=== PATIENT | female | born 1995 | race African-American/Black ===

== ENCOUNTER 2019-04-16 21:09 | Emergency (ER) | payer MEDICAID ==
[2019-04-16] MEDS ORDERED: Ondansetron 4 MG/2 ML SDV IVPUSH ONE (21:22)
--- NOTE | 2019-04-16 21:25 | EDM.PDOC ---
ED HPI GENERAL MEDICAL PROBLEM <Gabi Mauricio - Last Filed: 04/16/19 23:32> - General Source of Information: Reports: Patient History Limitations: Reports: No Limitations - History of Present Illness Duration: Week(s): Location: Reports: Abdomen abdomen Pain Score (Numeric/FACES): 10 <Josseline Wallace - Last Filed: 04/18/19 09:59> - General Chief Complaint: Gastrointestinal Problem Stated Complaint: NAUSEA VOMITTING Time Seen by Provider: 04/16/19 21:16 - History of Present Illness INITIAL COMMENTS - FREE TEXT/NARRATIVE: This is Dr. Mauricio dictating an addendum note as I have assumed care of this case at 10 PM and and the supervising physician. I reviewed all the blood work including a serum quantitative hCG and the patient underwent a pelvic ultrasound. The patient does have an intrauterine sac without a pole or yolk sac and is concerning for a blighted ovum in light of the Quant of 77,000 and the lack of appropriate markers. The patient is not having any vaginal bleeding or discharge and her lower abdominal pain can be explained by a corpus luteal cyst in the right ovary. All these results were discussed with the patient and family at bedside as well as with Dr. Merchant at 2325. The patient does have a follow-up appointment with [facility] on Wednesday and I have encouraged her to keep that as she can have a repeat hormone level and ultrasound at that time. I have told her that she needs to be on strict pelvic rest until that time and reasons to return to the ED. Dr. Merchant has her name and will inform the office and I will have the patient call there in the morning just to confirm her follow-up on Wednesday. I will also give her Zofran from [employer] for home use Please add to impression above: Intrauterine rule out blighted ovum/ threatened , vomiting in (Gabi Mauricio Wayne) HISTORY AND PHYSICAL: History of present illness: Patient is a 23-year-old female who presents to the emergency room with complaints of a 2 week of nausea, vomiting, and midsternal chest pain and generalized abdominal pain. She states that she took a home test which was positive, believes she is approximately 7 weeks . Her LMP 11/2018. She does have an appointment with an [facility] on Wednesday for her initial OB visit. She states she came to the emergency room by ambulance today as she felt she could not wait any longer due to her symptoms. Patient denies any fever, chills, headache, change in vision, syncope or near syncope. Denies any back pain, shortness of breath or cough. Denies any diarrhea, constipation or dysuria. Has not noted any blood in urine or stool. She denies any vaginal bleeding or discharge. Patient has been eating and drinking appropriately. 5, para 2. Review of systems: As per history of present illness and below otherwise all systems reviewed and negative. Past medical history: As per history of present illness and as reviewed below otherwise noncontributory. Surgical history: As per history of present illness and as reviewed below otherwise noncontributory. Social history: See social history for further information Family history: As per history of present illness and as reviewed below otherwise noncontributory. Physical exam: General: Well-developed and well-nourished 23-year-old -German female. Alert and oriented. Nontoxic appearing and in no acute distress. HEENT: Atraumatic, normocephalic, pupils equal and reactive bilaterally, negative for conjunctival pallor or scleral icterus, mucous membranes moist, trachea midline. No drooling or trismus noted. No meningeal signs. No hot potato voice noted. Lungs: Clear to auscultation, breath sounds equal bilaterally, chest nontender. Heart: S1S2, regular rate and rhythm without overt murmur Abdomen: Soft, nondistended, generalized tenderness throughout, no rebound tenderness. Negative for masses or hepatosplenomegaly. Negative for costovertebral tenderness. Pelvis: Stable nontender. Skin: Intact, warm, dry. No lesions or rashes noted. Extremities: Atraumatic, moves all extremities per self without difficulty or deficits, negative for cords or calf pain. Neurovascular unremarkable. Neuro: Awake, alert, oriented. Cranial nerves II through XII unremarkable. Cerebellum unremarkable. Motor and sensory unremarkable throughout. Exam nonfocal. Notes: Lab work is pending. Dr Mauricio was informed of this patient and will follow labs/ultrasound and disposition patient appropriately. Diagnostics: CBC, CMP, UA, HCGU, Quant HCG, Transvaginal US Therapeutics: IV fluids, Zofran Impression: Abdominal Pain Definitive disposition and diagnosis as appropriate pending reevaluation and review of above. (Josseline Wallace) - Related Data Allergies Allergy/AdvReac Type Severity Reaction Status Date / Time No Known Allergies Allergy Verified 04/16/19 21:15 Home Meds: Home Meds Pnv No.95/Ferrous Fum/Folic AC [ Caplet] 1 tab PO DAILY 04/16/19 [ History] ED ROS GENERAL - Review of Systems Review Of Systems: Comprehensive ROS is negative, except as noted in HPI. <Gabi Mauricio - Last Filed: 04/16/19 23:32> - Review of Systems Review Of Systems: Comprehensive ROS is negative, except as noted in HPI. <Josseline Wallace - Last Filed: 04/18/19 09:59> ED EXAM - Physical Exam Exam: See Below (See dictation) <Josseline Wallace - Last Filed: 04/18/19 09:59> - Vital Signs Last Recorded V/S: Last Vital Signs Temp 96.8 F 04/16/19 21:13 Pulse 69 04/16/19 23:48 Resp 16 04/16/19 23:48 BP 107/61 04/16/19 23:48 Pulse Ox 100 04/16/19 23:48 - Orders/Labs/Meds Labs: Laboratory Tests 04/16/19 04/16/19 04/16/19 Range/Units 21:35 21:35 22:05 WBC 6.61 (4.0-11.0) K/uL RBC 4.66 (4.30-5.90) M/uL Hgb 12.9 (12.0-16.0) g/dL Hct 39.0 (36.0-46.0) % MCV 83.7 (80.0-98.0) fL MCH 27.7 (27.0-32.0) pg MCHC 33.1 (31.0-37.0) g/dL RDW Std Deviation 39.1 (28.0-62.0) fl RDW Coeff of Tamar 13 (11.0-15.0) % Plt Count 347 (150-400) K/uL MPV 10.00 (7.40-12.00) fL Neut % (Auto) 58.7 (48.0-80.0) % Lymph % (Auto) 30.1 (16.0-40.0) % Hand % (Auto) 10.6 (0.0-15.0) % Eos % (Auto) 0.3 (0.0-7.0) % Baso % (Auto) 0.3 (0.0-1.5) % Neut # (Auto) 3.9 (1.4-5.7) K/uL Lymph # (Auto) 2.0 (0.6-2.4) K/uL Hand # (Auto) 0.7 (0.0-0.8) K/uL Eos # (Auto) 0.0 (0.0-0.7) K/uL Baso # (Auto) 0.0 (0.0-0.1) K/uL Nucleated RBC % 0.0 /100WBC Nucleated RBCs # 0 K/uL HCG, Qual (NEG) HCG, Quant 77740.0 mIU/mL Urine Color YELLOW Urine Appearance CLOUDY Urine pH 8.5 H (5.0-8.0) Ur Specific [place] 1.015 (1.001-1.035) Urine Protein 30 H (NEGATIVE) mg/dL Urine Glucose (UA) NEGATIVE (NEGATIVE) mg/dL Urine Ketones 40 H (NEGATIVE) mg/dL Urine Occult Blood NEGATIVE (NEGATIVE) Urine Nitrite NEGATIVE (NEGATIVE) Urine Bilirubin NEGATIVE (NEGATIVE) Urine Urobilinogen 1.0 (<2.0) EU/dL Ur Leukocyte Esterase NEGATIVE (NEGATIVE) Urine RBC 0-1 (0-2/HPF) Urine WBC 2-5 (0-5/HPF) Ur Epithelial Cells FEW (NONE-FEW) Amorphous Sediment HEAVY (NEGATIVE) Urine Bacteria FEW (NEGATIVE) Blood Type 04/16/19 04/16/19 Range/Units 22:05 22:05 WBC (4.0-11.0) K/uL RBC (4.30-5.90) M/uL Hgb (12.0-16.0) g/dL Hct (36.0-46.0) % MCV (80.0-98.0) fL MCH (27.0-32.0) pg MCHC (31.0-37.0) g/dL RDW Std Deviation (28.0-62.0) fl RDW Coeff of Tamar (11.0-15.0) % Plt Count (150-400) K/uL MPV (7.40-12.00) fL Neut % (Auto) (48.0-80.0) % Lymph % (Auto) (16.0-40.0) % Hand % (Auto) (0.0-15.0) % Eos % (Auto) (0.0-7.0) % Baso % (Auto) (0.0-1.5) % Neut # (Auto) (1.4-5.7) K/uL Lymph # (Auto) (0.6-2.4) K/uL Hand # (Auto) (0.0-0.8) K/uL Eos # (Auto) (0.0-0.7) K/uL Baso # (Auto) (0.0-0.1) K/uL Nucleated RBC % /100WBC Nucleated RBCs # K/uL HCG, Qual POSITIVE H (NEG) HCG, Quant mIU/mL Urine Color Urine Appearance Urine pH (5.0-8.0) Ur Specific [place] (1.001-1.035) Urine Protein (NEGATIVE) mg/dL Urine Glucose (UA) (NEGATIVE) mg/dL Urine Ketones (NEGATIVE) mg/dL Urine Occult Blood (NEGATIVE) Urine Nitrite (NEGATIVE) Urine Bilirubin (NEGATIVE) Urine Urobilinogen (<2.0) EU/dL Ur Leukocyte Esterase (NEGATIVE) Urine RBC (0-2/HPF) Urine WBC (0-5/HPF) Ur Epithelial Cells (NONE-FEW) Amorphous Sediment (NEGATIVE) Urine Bacteria (NEGATIVE) Blood Type B POSITIVE Meds: Medications Discontinued Medications Generic Name Dose Route Start Last Admin Trade Name Genie PRN Reason Stop Dose Admin Sodium Chloride 1,000 mls @ 999 mls/hr 04/16/19 21:30 04/16/19 21:39 Normal Saline IV 999 mls/hr ASDIRECTED SHAQUILLE Administration Ondansetron HCl 4 mg 04/16/19 21:22 04/16/19 21:40 Zofran IVPUSH 04/16/19 21:23 4 mg ONETIME ONE Administration Departure - Departure Time of Disposition: 23:34 Condition: Good <Gabi Mauricio A - Last Filed: 04/16/19 23:32> <Josseline Wallace - Last Filed: 04/18/19 09:59> - Departure Disposition: Home, Self-Care 01 Clinical Impression: Abdominal pain, Threatened , Vomiting - Discharge Information Instructions: First Trimester of , [id number], Threatened Miscarriage, [id number] Referrals: PCP,Not In Area [Primary Care Provider] - Forms: ED Department Discharge Additional Instructions: The following information is given to patients seen in the emergency department who are being discharged to home. This information is to outline your options for follow-up care. We provide all patients seen in our emergency department with a follow-up referral. The need for follow-up, as well as the timing and circumstances, are variable depending upon the specifics of your emergency department visit. If you don't have a primary care physician on staff, we will provide you with a referral. We always advise you to contact your personal physician following an emergency department visit to inform them of the circumstance of the visit and for follow-up with them and/or the need for any referrals to a consulting specialist. The emergency department will also refer you to a specialist when appropriate. This referral assures that you have the opportunity for followup care with a specialist. All of these measure are taken in an effort to provide you with optimal care, which includes your followup. Under all circumstances we always encourage you to contact your private physician who remains a resource for coordinating your care. When calling for followup care, please make the office aware that this follow-up is from your recent emergency room visit. If for any reason you are refused follow-up, please contact the [facility] emergency department at and ask to speak to the emergency department charge nurse. [facility]'s [address] [id number] Please keep your appointment on Wednesday at the clinic but also call in the morning and check in to allow them to know what is going on and see if they want to move your appointment sooner. Push hydration and strict pelvic rest with nothing in the vagina and to you're followed up in the clinic. Use Zofran as prescribed to you from [facility] as needed for nausea and vomiting. Return to ER as needed and as discussed
[2019-04-16] MEDS ORDERED: Sodium Chloride 0.9% 1,000 ML IV SCH (21:30)
--- NOTE | 2019-04-16 23:25 | US ---
INDICATION: Right lower quadrant pain 2 weeks, positive test TECHNIQUE: Ultrasound OB pelvis transvaginal. Real time mendoza scale imaging of the pelvis was performed. COMPARISON: None FINDINGS: Gestational sac: Sonographic imaging demonstrates a single intrauterine gestation with a normal appearance measuring 4.3 x 1 x 2.1 cm with an average diameter of 2.5 cm. No evidence of a perigestational hemorrhage is seen. The amount of fluid within the sac appears appropriate for gestational age. Fetus: No pole or yolk sac is identified. Placenta: The placenta has not yet developed. 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 The visualized myometrium appears normal. The right ovary has an echogenic, thick-walled structure with peripheral vascularity. An adjacent right simple ovarian cyst is noted. Left ovary is unremarkable in appearance. No significant ascites noted. IMPRESSION: 1. Single intrauterine gestational sac is seen along the right uterine horn with average sac diameter of 2.5 cm and no pole identified. Findings are suspicious for blighted ovum and follow-up ultrasound recommended. 2. 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 3. The right ovary has an echogenic, thick-walled structure with peripheral vascularity. This may represent a corpus luteum cyst but follow-up ultrasound is also helpful to exclude the less likely possibility of ectopic or heterotopic . Dictated by Nas Nava MD @ 04/16/2019 11:24:31 PM Dictated by: Nas Nava MD @ 04/16/2019 23:24:35 (Electronically Signed)
== END 2019-04-16 23:50 | disposition home or self-care (01) ==
LOC: MW.ED 21:09
DX: O20.0 Threatened abortion (principal); O21.9 Vomiting of pregnancy, unspecified; Z3A.01 Less than 8 weeks gestation of pregnancy
CPT/HCPCS: 76817; 81001; 84702; 84703; 85025; 86900; 86901; 93005; 96361; 96374; 99284; J2405; J7040; 99283; J7030

== ENCOUNTER 2019-05-03 10:41 | Emergency (ER) | payer MEDICAID ==
[2019-05-03] MEDS ORDERED: Sodium Chloride 0.9% 1,000 ML IV ONE ×2 (10:55→11:59)
[2019-05-03] MEDS ORDERED: Ondansetron 4 MG/2 ML SDV IVPUSH ONE (10:55)
--- NOTE | 2019-05-03 11:15 | EDM.PDOC ---
ED HPI GENERAL MEDICAL PROBLEM - General Chief Complaint: Gastrointestinal Problem Stated Complaint: DEHYDRATED Time Seen by Provider: 05/03/19 10:42 Source of Information: Reports: Patient History Limitations: Reports: No Limitations - History of Present Illness INITIAL COMMENTS - FREE TEXT/NARRATIVE: HISTORY AND PHYSICAL: History of present illness: Patient is a 23-year-old female presents to the ED today with concern of dehydration due to vomiting and early . Patient states she is approximately 7-8 weeks in gestation. Patient states over the last week she has felt more nauseous and has not been drinking as much fluids. Patient states she is vomited a few times on occasion. Patient denies any abdominal pain, cramping , or vaginal bleeding. Patient states she follows with Dr. Prince Barnes [facility]. Patient was seen in the ED on 04/16/19 with possible blighted ovum versus early . Patient states she had a follow- up ultrasound with Dr. Prince Barnes and cardiac activity was detected according to patient. Patient states she has had nausea during and has been given Zofran by Dr. Prince Barnes. Patient states she did take a dose of Zofran earlier this morning. Patient states she has not vomited since taking Zofran. Patient denies any other symptoms or concerns. Patient denies fever, chills, chest pain, shortness of breath, or cough. Denies headache, neck stiff ness, change in vision, syncope, or near syncope. Denies abdominal pain, diarrhea, constipation, or dysuria. Has not noted any blood in urine or stool. Patient has been eating and drinking appropriately. Review of systems: As per history of present illness and below otherwise all systems reviewed and negative. Past medical history: As per history of present illness and as reviewed below otherwise noncontributory. Surgical history: As per history of present illness and as reviewed below otherwise noncontributory. Social history: See social history for further information Family history: As per history of present illness and as reviewed below otherwise noncontributory. Physical exam: General: Patient is alert, oriented, and in no acute distress. Patient laying comfortably on exam table. HEENT: Atraumatic, normocephalic, pupils equal and reactive bilaterally, negative for conjunctival pallor or scleral icterus, mucous membranes dry, TMs normal bilaterally, throat clear, neck supple, nontender, trachea midline. No drooling or trismus noted. No meningeal signs. No hot potato voice noted. Lungs: Clear to auscultation, breath sounds equal bilaterally, chest nontender. Heart: S1S2, regular rate and rhythm without overt murmur Abdomen: Soft, nondistended, nontender. Negative for masses or hepatosplenomegaly. Negative for costovertebral tenderness. Pelvis: Stable nontender. Genitourinary: Deferred. Rectal: Deferred. Skin: Intact, warm, dry. No lesions or rashes noted. Extremities: Atraumatic, negative for cords or calf pain. Neurovascular unremarkable. Neuro: Awake, alert, oriented. Cranial nerves II through XII unremarkable. Cerebellum unremarkable. Motor and sensory unremarkable throughout. Exam nonfocal. Notes: Patient able to tolerate PO intake in the ED today. Discussed the importance for follow-up with her [facility] provider. Voices understanding and is agreeable to plan of care. Denies any further questions or concerns at this time. Diagnostics: CBC, CMP, UA, lipase Therapeutics: NS, Zofran Prescription: Keflex Impression: Nausea and vomiting in early Urinary tract infection Plan: 1. Please start and/or continue to take your vitamin with folic acid once daily. 2. Tylenol as needed for pain management. This is safe to use in . 3. Follow up with your [facility] womens health provider as discussed. Return to the ED as needed and as discussed. Definitive disposition and diagnosis as appropriate pending reevaluation and review of above. 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 (See Below) Other SHEET [employer]AYER History: Musculoskeletal History: Reports: None Neurological History: Reports: None Psychiatric History: Reports: None Endocrine/Metabolic History: Reports: None Hematologic History: Reports: None Immunologic History: Reports: None Oncologic (Cancer) History: Reports: None Dermatologic History: Reports: None - Past Surgical History Head Surgeries/Procedures: Reports: None HEENT Surgical History: Reports: None Cardiovascular Surgical History: Reports: None Respiratory Surgical History: Reports: None GI Surgical History: Reports: None Female Surgical History: Reports: None Endocrine Surgical History: Reports: None Neurological Surgical History: Reports: None Musculoskeletal Surgical History: Reports: None Oncologic Surgical History: Reports: None Dermatological Surgical History: Reports: None Social & Family History - Family History Family Medical History: Noncontributory - Tobacco Use Smoking Status *Q: Never Smoker Second Hand Smoke Exposure: No - Caffeine Use Caffeine Use: Reports: None - Recreational Drug Use Recreational Drug Use: No ED ROS GENERAL - Review of Systems Review Of Systems: Comprehensive ROS is negative, except as noted in HPI. ED EXAM, GENERAL - Physical Exam Exam: See Below (See dictation) Course - Vital Signs Last Recorded V/S: Last Vital Signs Temp 97.0 F 05/03/19 10:49 Pulse 127 H 05/03/19 10:49 Resp 18 05/03/19 10:49 BP 108/72 05/03/19 10:49 Pulse Ox 98 05/03/19 10:49 - Orders/Labs/Meds Orders: Active Orders 24 hr Category Date Time Status CULTURE URINE [RM] Stat Lab 05/03/19 12:00 Received Labs: Laboratory Tests 05/03/19 05/03/19 05/03/19 Range/Units 11:00 11:00 12:00 WBC 6.34 (4.0-11.0) K/uL RBC 4.43 (4.30-5.90) M/uL Hgb 12.2 (12.0-16.0) g/dL Hct 36.3 (36.0-46.0) % MCV 81.9 (80.0-98.0) fL MCH 27.5 (27.0-32.0) pg MCHC 33.6 (31.0-37.0) g/dL RDW Std Deviation 38.5 (28.0-62.0) fl RDW Coeff of Tamar 13 (11.0-15.0) % Plt Count 279 (150-400) K/uL MPV 10.60 (7.40-12.00) fL Neut % (Auto) 63.6 (48.0-80.0) % Lymph % (Auto) 29.2 (16.0-40.0) % Hudson % (Auto) 6.8 (0.0-15.0) % Eos % (Auto) 0.2 (0.0-7.0) % Baso % (Auto) 0.2 (0.0-1.5) % Neut # (Auto) 4.0 (1.4-5.7) K/uL Lymph # (Auto) 1.9 (0.6-2.4) K/uL Hudson # (Auto) 0.4 (0.0-0.8) K/uL Eos # (Auto) 0.0 (0.0-0.7) K/uL Baso # (Auto) 0.0 (0.0-0.1) K/uL Nucleated RBC % 0.0 /100WBC Nucleated RBCs # 0 K/uL Sodium 136 (136-145) mmol/L Potassium 3.0 L (3.5-5.1) mmol/L Chloride 101 (98-107) mmol/L Carbon Dioxide 24.6 (21.0-32.0) mmol/L BUN 10 (7.0-18.0) mg/dL Creatinine 0.7 (0.6-1.0) mg/dL Est Cr Clr Drug Dosing 121.55 mL/min Estimated GFR (MDRD) > 60.0 ml/min Glucose 124 H (74-106) mg/dL Calcium 9.1 (8.5-10.1) mg/dL Total Bilirubin 0.8 (0.2-1.0) mg/dL AST 13 L (15-37) IU/L ALT 14 (14-63) IU/L Alkaline Phosphatase 47 (46-116) U/L Total Protein 8.1 (6.4-8.2) g/dL Albumin 3.7 (3.4-5.0) g/dL Globulin 4.4 H (2.6-4.0) g/dL Albumin/Globulin Ratio 0.8 L (0.9-1.6) Lipase 80 (73-393) U/L Urine Color DARK YELLOW Urine Appearance SLT CLOUDY Urine pH 6.0 (5.0-8.0) Ur Specific Marvin >= 1.030 (1.001-1.035) Urine Protein 30 H (NEGATIVE) mg/dL Urine Glucose (UA) NEGATIVE (NEGATIVE) mg/dL Urine Ketones 15 H (NEGATIVE) mg/dL Urine Occult Blood NEGATIVE (NEGATIVE) Urine Nitrite POSITIVE H (NEGATIVE) Urine Bilirubin SMALL H (NEGATIVE) Urine Ictotest NEGATIVE Urine Urobilinogen 1.0 (<2.0) EU/dL Ur Leukocyte Esterase NEGATIVE (NEGATIVE) Urine RBC 0-3 (0-2/HPF) Urine WBC 0-3 (0-5/HPF) Ur Epithelial Cells FEW (NONE-FEW) Urine Bacteria 1+ H (NEGATIVE) Urine Mucus MODERATE (NONE-MOD) Meds: Medications Discontinued Medications Generic Name Dose Route Start Last Admin Trade Name Freq PRN Reason Stop Dose Admin Sodium Chloride 1,000 mls @ 999 mls/hr 05/03/19 10:55 05/03/19 11:06 Normal Saline IV 05/03/19 11:55 999 mls/hr BOLUS ONE Administration Sodium Chloride 1,000 mls @ 999 mls/hr 05/03/19 11:59 05/03/19 12:19 Normal Saline IV 05/03/19 12:59 999 mls/hr STAT ONE Administration Ondansetron HCl 4 mg 05/03/19 10:55 05/03/19 11:08 Zofran IVPUSH 05/03/19 10:56 4 mg ONETIME ONE Administration Departure - Departure Time of Disposition: 14:13 Disposition: Home, Self-Care 01 Clinical Impression: Nausea and vomiting in Urinary tract infection Qualifiers: Urinary tract infection type: acute cystitis Hematuria presence: without hematuria Qualified Code(s): N30.00 - Acute cystitis without hematuria - Discharge Information Referrals: PCP,None [Primary Care Provider] - Forms: ED Department Discharge Additional Instructions: The following information is given to patients seen in the emergency department who are being discharged to home. This information is to outline your options for follow-up care. We provide all patients seen in our emergency department with a follow-up referral. The need for follow-up, as well as the timing and circumstances, are variable depending upon the specifics of your emergency department visit. If you don't have a primary care physician on staff, we will provide you with a referral. We always advise you to contact your personal physician following an emergency department visit to inform them of the circumstance of the visit and for follow-up with them and/or the need for any referrals to a consulting specialist. The emergency department will also refer you to a specialist when appropriate. This referral assures that you have the opportunity for follow-up care with a specialist. All of these measure are taken in an effort to provide you with optimal care, which includes your follow-up. Under all circumstances we always encourage you to contact your private physician who remains a resource for coordinating your care. When calling for follow-up care, please make the office aware that this follow-up is from your recent emergency room visit. If for any reason you are refused follow-up, please contact the [facility] Emergency Department at and asked to speak to the emergency department charge nurse. [facility] [address] [place] [id number] [facility] [address] [place] [id number] [facility] [address] [place] [address] 1. Please start and/or continue to take your vitamin with folic acid once daily. 2. Tylenol as needed for pain management. This is safe to use in . 3. Follow up with your [facility] womens health provider as discussed. Return to the ED as needed and as discussed. - My Orders Last 24 Hours: My Active Orders 05/03/19 12:00 CULTURE URINE [RM] Stat - Assessment/Plan Last 24 Hours: My Active Orders 05/03/19 12:00 CULTURE URINE [RM] Stat
[2019-05-03 11:49] LABS: BLOOD UREA NITROGEN,BUN 10 mg/dL (7.0-18.0); CARBON DIOXIDE,CO2 24.6 mmol/L (21.0-32.0); CHLORIDE,CL 101 mmol/L (98-107); GLUCOSE RANDOM 124 mg/dL (74-106); LIPASE 80 U/L (73-393); SODIUM,NA 136 mmol/L (136-145)
== END 2019-05-03 14:27 | disposition home or self-care (01) ==
LOC: MW.ED 10:41
DX: O21.9 Vomiting of pregnancy, unspecified (principal); O23.11 Infections of bladder in pregnancy, first trimester; Z79.899 Other long term (current) drug therapy; Z3A.08 8 weeks gestation of pregnancy
CPT/HCPCS: 36415; 80053; 81001; 83690; 85025; 87086; 96361; 96374; 99284; J2405; J7030

== ENCOUNTER 2019-05-08 17:03 | Emergency (ER) | payer MEDICAID ==
[2019-05-08] MEDS ORDERED: Sodium Chloride 0.9% 10 ML Syringe FLUSH PRN (17:07)
[2019-05-08] MEDS ORDERED: Sodium Chloride 0.9% 2.5 ML Syringe FLUSH PRN (17:07)
[2019-05-08] MEDS ORDERED: Ondansetron 4 MG/2 ML SDV IVPUSH ONE ×2 (17:09→17:15)
--- NOTE | 2019-05-08 17:12 | EDM.PDOC ---
ED HPI GENERAL MEDICAL PROBLEM - General Source of Information: Reports: Patient History Limitations: Reports: No Limitations <Arya Monsalve - Last Filed: 05/08/19 18:02> <BonifacioPhilippe - Last Filed: 05/08/19 19:11> - General Chief Complaint: Syncope Stated Complaint: GENERALIZED WEAKNESS Time Seen by Provider: 05/08/19 17:11 - History of Present Illness INITIAL COMMENTS - FREE TEXT/NARRATIVE: HISTORY AND PHYSICAL: History of present illness: Patient is a 23-year-old female reportedly 9 weeks gestation presents to the ED via EMS for concern of not feeling well. Per EMS, they were called secondary to her not feeling well after vomiting all day. Patient reportedly stopped responding just prior to EMS arrival to her home. On arrival patient is awake but initially not verbally responding. Patient then grabbed a emesis back and leaned to the side while retching. Vitals stable and POC glucose 140s. Patient states she has not been able to eat in a while and can't keep anything down. She states she was at home when she felt like everything went black and she could not feel anything. Review of systems: As per history of present illness and below otherwise all systems reviewed and negative. Past medical history: As per history of present illness and as reviewed below otherwise noncontributory. Surgical history: As per history of present illness and as reviewed below otherwise noncontributory. Social history: No reported history of drug or alcohol abuse. Family history: As per history of present illness and as reviewed below otherwise noncontributory. Physical exam: General: Patient sitting comfortably in no acute distress and nontoxic appearing HEENT: Atraumatic, normocephalic, pupils reactive, negative for conjunctival pallor or scleral icterus, mucous membranes moist, throat clear, neck supple, nontender, trachea midline. No meningeal signs. Lungs: Clear to auscultation, breath sounds equal bilaterally, chest nontender. Heart: S1S2, regular, negative for clicks, rubs, or overt murmur. Abdomen: Soft, nondistended, nontender. Negative for masses or hepatosplenomegaly. Negative for costovertebral tenderness. No rigidity, rebound , guarding. Pelvis: Stable nontender. Genitourinary: Deferred. Rectal: Deferred. Extremities: Atraumatic, negative for cords or calf pain. Neurovascular unremarkable. Neuro: Awake, alert, oriented. Cranial nerves II through XII unremarkable. Cerebellum unremarkable. Motor and sensory unremarkable throughout. Exam nonfocal. Notes: Diagnostics: CBC, CMP, EKG, Therapeutics: 1L NS IV 4mg Zofran IV Prescriptions: Impression: Vomiting in Plan: Signed out to Dr. Valdovinos at 1800 Definitive disposition and diagnosis as appropriate pending reevaluation and review of above. (Arya Monsalve) signed Out to me at 1800 Stated complaint as above she does have vomiting in she does has not elicited any symptoms here on my exam, initially she was not responding to questioning however she did respond 1 told we were going to have to put a urine catheter in her have full motor movements with organized purposeful movement to vomit into a bag Lab an EKG performed as above patient has had a liter of normal saline and Zofran I have ordered orthostatics on the patient their normal Patient is asymptomatic at current and in no distress she has had an extended observation period here in the ER she will be discharged with Zofran Seen and examined the patient improved agree with the above (Philippe Valdovinos) - Related Data Allergies Allergy/AdvReac Type Severity Reaction Status Date / Time No Known Allergies Allergy Verified 05/03/19 10:48 Home Meds: Home Meds Ondansetron [Zofran ODT] 1 tab PO ASDIRECTED 05/03/19 [History] Past Medical History HEENT History: Reports: None Cardiovascular History: Reports: None Respiratory History: Reports: None Gastrointestinal History: Reports: None Genitourinary History: Reports: None MARINE OPERATIONS COORDINATOR History: Reports: , Other (See Below) Other MARINE OPERATIONS COORDINATOR History: Musculoskeletal History: Reports: None Neurological History: Reports: None Psychiatric History: Reports: None Endocrine/Metabolic History: Reports: None Hematologic History: Reports: None Immunologic History: Reports: None Oncologic (Cancer) History: Reports: None Dermatologic History: Reports: None - Past Surgical History Head Surgeries/Procedures: Reports: None HEENT Surgical History: Reports: None Cardiovascular Surgical History: Reports: None Respiratory Surgical History: Reports: None GI Surgical History: Reports: None Female Surgical History: Reports: None Endocrine Surgical History: Reports: None Neurological Surgical History: Reports: None Musculoskeletal Surgical History: Reports: None Oncologic Surgical History: Reports: None Dermatological Surgical History: Reports: None <Arya Monsalve - Last Filed: 05/08/19 18:02> Social & Family History - Family History Family Medical History: Noncontributory - Caffeine Use Caffeine Use: Reports: None <Arya Monsalve - Last Filed: 05/08/19 18:02> ED ROS GENERAL - Review of Systems Review Of Systems: Comprehensive ROS is negative, except as noted in HPI. <Arya Monsalve - Last Filed: 05/08/19 18:02> - Review of Systems Review Of Systems: See Below <Philippe Valdovinos - Last Filed: 05/08/19 19:11> - Physical Exam Exam: See Below (see dictation) <Arya Monsalve - Last Filed: 05/08/19 18:02> - Physical Exam Exam: See Below <Philippe Valdovinos - Last Filed: 05/08/19 19:11> - Vital Signs Last Recorded V/S: Last Vital Signs Temp 97.4 F 05/08/19 17:08 Pulse 91 05/08/19 17:36 Resp 18 05/08/19 17:36 BP 118/80 05/08/19 17:36 Pulse Ox 98 05/08/19 17:36 Orthostatic Blood Pressure [ 114/72 Standing] Orthostatic Blood Pressure [ 114/71 Sitting] Orthostatic Blood Pressure [ 117/77 Supine] - Orders/Labs/Meds Orders: Active Orders 24 hr Category Date Time Status Blood Glucose Check, Bedside [RC] ONETIME Care 05/08/19 17:06 Active Cardiac Monitoring [RC] . DIRECTED Care 05/08/19 17:06 Active EKG Documentation Completion [RC] STAT Care 05/08/19 17:06 Active Heart Tones [RC] ASDIRECTED Care 05/08/19 17:09 Active Pulse Oximetry [RC] ASDIRECTED Care 05/08/19 17:06 Active Potassium Chloride [Klor-Con 10] Med 05/08/19 19:03 Once 10 meq PO ONETIME ONE Sodium Chloride 0.9% [Saline Flush] Med 05/08/19 17:07 Active 10 ml FLUSH ASDIRECTED PRN Sodium Chloride 0.9% [Saline Flush] Med 05/08/19 17:07 Active 2.5 ml FLUSH ASDIRECTED PRN Saline Lock Insert [OM.PC] Stat Oth 05/08/19 17:06 Ordered Medication Orders Potassium Chloride (Klor-Con 10) 10 meq PO ONETIME ONE Stop: 05/08/19 19:04 Sodium Chloride (Saline Flush) 10 ml FLUSH ASDIRECTED PRN PRN Reason: Keep Vein Open Sodium Chloride (Saline Flush) 2.5 ml FLUSH ASDIRECTED PRN PRN Reason: Keep Vein Open Labs: Laboratory Tests 05/08/19 05/08/19 05/08/19 Range/Units 17:45 17:45 17:50 WBC 6.56 (4.0-11.0) K/uL RBC 4.74 (4.30-5.90) M/uL Hgb 13.2 (12.0-16.0) g/dL Hct 39.1 (36.0-46.0) % MCV 82.5 (80.0-98.0) fL MCH 27.8 (27.0-32.0) pg MCHC 33.8 (31.0-37.0) g/dL RDW Std Deviation 41.2 (28.0-62.0) fl RDW Coeff of Tamar 14 (11.0-15.0) % Plt Count 277 (150-400) K/uL MPV 9.90 (7.40-12.00) fL Neut % (Auto) 71.7 (48.0-80.0) % Lymph % (Auto) 18.0 (16.0-40.0) % [place] % (Auto) 9.3 (0.0-15.0) % Eos % (Auto) 0.8 (0.0-7.0) % Baso % (Auto) 0.2 (0.0-1.5) % Neut # (Auto) 4.7 (1.4-5.7) K/uL Lymph # (Auto) 1.2 (0.6-2.4) K/uL [place] # (Auto) 0.6 (0.0-0.8) K/uL Eos # (Auto) 0.1 (0.0-0.7) K/uL Baso # (Auto) 0.0 (0.0-0.1) K/uL Nucleated RBC % 0.0 /100WBC Nucleated RBCs # 0 K/uL Sodium 136 (136-145) mmol/L Potassium 3.0 L (3.5-5.1) mmol/L Chloride 101 (98-107) mmol/L Carbon Dioxide 17.5 L (21.0-32.0) mmol/L BUN 13 (7.0-18.0) mg/dL Creatinine 0.9 (0.6-1.0) mg/dL Est Cr Clr Drug Dosing 76.57 mL/min Estimated GFR (MDRD) > 60.0 ml/min Glucose 121 H (74-106) mg/dL Calcium 9.1 (8.5-10.1) mg/dL Total Bilirubin 1.2 H (0.2-1.0) mg/dL AST 10 L (15-37) IU/L ALT 12 L (14-63) IU/L Alkaline Phosphatase 51 (46-116) U/L Total Protein 8.1 (6.4-8.2) g/dL Albumin 3.8 (3.4-5.0) g/dL Globulin 4.3 H (2.6-4.0) g/dL Albumin/Globulin Ratio 0.9 (0.9-1.6) Urine Color YELLOW Urine Appearance HAZY Urine pH 6.0 (5.0-8.0) Ur Specific [place] >= 1.030 (1.001-1.035) Urine Protein 100 H (NEGATIVE) mg/dL Urine Glucose (UA) NEGATIVE (NEGATIVE) mg/dL Urine Ketones >=80 (NEGATIVE) mg/dL Urine Occult Blood TRACE-INTACT H (NEGATIVE) Urine Nitrite NEGATIVE (NEGATIVE) Urine Bilirubin MODERATE H (NEGATIVE) Urine Ictotest NEGATIVE Urine Urobilinogen 1.0 (<2.0) EU/dL Ur Leukocyte Esterase NEGATIVE (NEGATIVE) Urine RBC 0-2 (0-2/HPF) Urine WBC 0-2 (0-5/HPF) Ur Epithelial Cells FEW (NONE-FEW) Urine Bacteria 1+ H (NEGATIVE) Urine Mucus LIGHT (NONE-MOD) Urine HCG, Qual (NEGATIVE) Urine Opiates Screen (NEGATIVE) Ur Oxycodone Screen (NEGATIVE) Urine Methadone Screen (NEGATIVE) Ur Barbiturates Screen (NEGATIVE) Ur Phencyclidine Scrn (NEGATIVE) Ur Amphetamine Screen (NEGATIVE) U Methamphetamines Scrn (NEGATIVE) U Benzodiazepines Scrn (NEGATIVE) U Cocaine Metab Screen (NEGATIVE) U Marijuana (THC) Screen (NEGATIVE) Ethyl Alcohol < 3.0 mg/dL 05/08/19 05/08/19 Range/Units 17:50 17:50 WBC (4.0-11.0) K/uL RBC (4.30-5.90) M/uL Hgb (12.0-16.0) g/dL Hct (36.0-46.0) % MCV (80.0-98.0) fL MCH (27.0-32.0) pg MCHC (31.0-37.0) g/dL RDW Std Deviation (28.0-62.0) fl RDW Coeff of Tamar (11.0-15.0) % Plt Count (150-400) K/uL MPV (7.40-12.00) fL Neut % (Auto) (48.0-80.0) % Lymph % (Auto) (16.0-40.0) % [place] % (Auto) (0.0-15.0) % Eos % (Auto) (0.0-7.0) % Baso % (Auto) (0.0-1.5) % Neut # (Auto) (1.4-5.7) K/uL Lymph # (Auto) (0.6-2.4) K/uL [place] # (Auto) (0.0-0.8) K/uL Eos # (Auto) (0.0-0.7) K/uL Baso # (Auto) (0.0-0.1) K/uL Nucleated RBC % /100WBC Nucleated RBCs # K/uL Sodium (136-145) mmol/L Potassium (3.5-5.1) mmol/L Chloride (98-107) mmol/L Carbon Dioxide (21.0-32.0) mmol/L BUN (7.0-18.0) mg/dL Creatinine (0.6-1.0) mg/dL Est Cr Clr Drug Dosing mL/min Estimated GFR (MDRD) ml/min Glucose (74-106) mg/dL Calcium (8.5-10.1) mg/dL Total Bilirubin (0.2-1.0) mg/dL AST (15-37) IU/L ALT (14-63) IU/L Alkaline Phosphatase (46-116) U/L Total Protein (6.4-8.2) g/dL Albumin (3.4-5.0) g/dL Globulin (2.6-4.0) g/dL Albumin/Globulin Ratio (0.9-1.6) Urine Color Urine Appearance Urine pH (5.0-8.0) Ur Specific [place] (1.001-1.035) Urine Protein (NEGATIVE) mg/dL Urine Glucose (UA) (NEGATIVE) mg/dL Urine Ketones (NEGATIVE) mg/dL Urine Occult Blood (NEGATIVE) Urine Nitrite (NEGATIVE) Urine Bilirubin (NEGATIVE) Urine Ictotest Urine Urobilinogen (<2.0) EU/dL Ur Leukocyte Esterase (NEGATIVE) Urine RBC (0-2/HPF) Urine WBC (0-5/HPF) Ur Epithelial Cells (NONE-FEW) Urine Bacteria (NEGATIVE) Urine Mucus (NONE-MOD) Urine HCG, Qual POSITIVE (NEGATIVE) Urine Opiates Screen NEGATIVE (NEGATIVE) Ur Oxycodone Screen NEGATIVE (NEGATIVE) Urine Methadone Screen NEGATIVE (NEGATIVE) Ur Barbiturates Screen NEGATIVE (NEGATIVE) Ur Phencyclidine Scrn NEGATIVE (NEGATIVE) Ur Amphetamine Screen NEGATIVE (NEGATIVE) U Methamphetamines Scrn NEGATIVE (NEGATIVE) U Benzodiazepines Scrn NEGATIVE (NEGATIVE) U Cocaine Metab Screen NEGATIVE (NEGATIVE) U Marijuana (THC) Screen NEGATIVE (NEGATIVE) Ethyl Alcohol mg/dL Meds: Medications Generic Name Dose Route Start Last Admin Trade Name Freq PRN Reason Stop Dose Admin Potassium Chloride 10 meq 05/08/19 19:03 Klor-Con 10 PO 05/08/19 19:04 ONETIME ONE Sodium Chloride 10 ml 05/08/19 17:07 Saline Flush FLUSH ASDIRECTED PRN Keep Vein Open Sodium Chloride 2.5 ml 05/08/19 17:07 Saline Flush FLUSH ASDIRECTED PRN Keep Vein Open Discontinued Medications Generic Name Dose Route Start Last Admin Trade Name Freq PRN Reason Stop Dose Admin Sodium Chloride 1,000 mls @ 999 mls/hr 05/08/19 17:17 05/08/19 17:18 Normal Saline IV 05/08/19 18:17 999 mls/hr .Bolus ONE Administration Ondansetron HCl 4 mg 05/08/19 17:09 05/08/19 17:19 Zofran IVPUSH 05/08/19 17:10 4 mg ONETIME ONE Administration Ondansetron HCl 4 mg 05/08/19 17:15 05/08/19 17:27 Zotana IVPUSH 05/08/19 17:16 Not Given ONETIME ONE Departure <Arya Monsalve - Last Filed: 05/08/19 18:02> - Departure Time of Disposition: 19:06 Condition: Good <Philippe Valdovinos - Last Filed: 05/08/19 19:11> - Departure Disposition: Home, Self-Care 01 Clinical Impression: Vomiting of - Discharge Information Forms: ED Department Discharge Additional Instructions: Medication as prescribed Return if symptoms persist or worsen Follow-up with OB,phone number below to schedule appropriate follow-up of choice [facility] [address] [id number] The following information is given to patients seen in the emergency department who are being discharged to home. This information is to outline your options for follow-up care. We provide all patients seen in our emergency department with a follow-up referral. The need for follow-up, as well as the timing and circumstances, are variable depending upon the specifics of your emergency department visit. If you don't have a primary care physician on staff, we will provide you with a referral. We always advise you to contact your personal physician following an emergency department visit to inform them of the circumstance of the visit and for follow-up with them and/or the need for any referrals to a consulting specialist. The emergency department will also refer you to a specialist when appropriate. This referral assures that you have the opportunity for follow-up care with a specialist. All of these measure are taken in an effort to provide you with optimal care, which includes your follow-up. Under all circumstances we always encourage you to contact your private physician who remains a resource for coordinating your care. When calling for follow-up care, please make the office aware that this follow-up is from your recent emergency room visit. If for any reason you are refused follow-up, please contact the [facility] emergency department at and asked to speak to the emergency department charge nurse. - My Orders Last 24 Hours: My Active Orders 05/08/19 19:03 Potassium Chloride [Klor-Con 10] 10 meq PO ONETIME ONE - Assessment/Plan Last 24 Hours: My Active Orders 05/08/19 19:03 Potassium Chloride [Klor-Con 10] 10 meq PO ONETIME ONE
[2019-05-08] MEDS ORDERED: Sodium Chloride 0.9% 1,000 ML IV ONE (17:17)
[2019-05-08 18:18] LABS: BLOOD UREA NITROGEN,BUN 13 mg/dL (7.0-18.0); CARBON DIOXIDE,CO2 17.5 mmol/L (21.0-32.0); CHLORIDE,CL 101 mmol/L (98-107); GLUCOSE RANDOM 121 mg/dL (74-106); SODIUM,NA 136 mmol/L (136-145)
[2019-05-08] MEDS ORDERED: Potassium Chloride 10 MEQ Tab.ER PO ONE (19:03)
== END 2019-05-08 19:35 | disposition home or self-care (01) ==
LOC: MW.ED 17:03
DX: O21.9 Vomiting of pregnancy, unspecified (principal); Z3A.09 9 weeks gestation of pregnancy
CPT/HCPCS: 36415; 80053; 80305; 80320; 81001; 81025; 85025; 93005; 96361; 96374; 96375; 99284; A9270; J2405; J7030; G0480

== ENCOUNTER 2019-05-10 12:39 | Emergency (ER) | payer MEDICAID ==
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
[2019-05-10] MEDS: Sodium Chloride 0.9% 1,000 ML IV ONE (13:07)
--- NOTE | 2019-05-10 13:42 | US ---
EXAM DATE: 05/10/19 PATIENT'S AGE: 23 1st trimester obstetrical ultrasound: Multiple real-time images were obtained transvaginally. Comparison: Previous study of 04/16/19. Dates: Current ultrasound: [facility] 12/07/19, gestational age 9 weeks 6 days Single intrauterine gestation is seen. Amniotic fluid volume is normal. Minimal free fluid is seen within the pelvis which is believed to be incidental. Left maternal ovary is normal. Right maternal ovary shows a thick rimmed finding measuring approximately 1.5 cm in size. This appears to be stable from previous exam. Measurements: Duran-rump length: 26.11 mm - 9 weeks 3 days Mean sac diameter: 4.43 cm - 10 weeks 2 days Heart rate: 172 BPM Impression: 1. Single intrauterine gestation. Dates as noted above. 2. Thick rimmed abnormality within the right ovary measuring 1.5 cm in size. This is most likely due to complicated corpus luteum cyst and is stable in size. Continued follow-up is recommended in 4-6 weeks. 3. No other complicating process is seen by ultrasound. Diagnostic code #3 This report was dictated in [place] Standard Time Report Signed by Proxy. [facility]
== END 2019-05-10 14:10 | disposition home or self-care (01) ==
LOC: MW.ED 12:39
DX: O9A.211 Injury, poisoning and certain other consequences of external causes complicating pregnancy, first trimester (principal); S00.83XA Contusion of other part of head, initial encounter; S80.211A Abrasion, right knee, initial encounter; S40.211A Abrasion of right shoulder, initial encounter; S20.311A Abrasion of right front wall of thorax, initial encounter; S10.91XA Abrasion of unspecified part of neck, initial encounter; Z3A.09 9 weeks gestation of pregnancy; Y04.8XXA Assault by other bodily force, initial encounter
CPT/HCPCS: 76801; 93005; 96360; 99284; J7030